=== PATIENT | male | born 1965 | race Caucasian/White ===

== ENCOUNTER 2017-09-01 13:15 | Emergency (ER) | payer BC ==
[2017-09-01 13:35] VITALS: BP 135/88; PULSE 72; TEMP 98.8; BMI 25.2
[2017-09-01] MEDS ORDERED: LIDOCAINE HCL 1%, 10 MG/ML (50 mL VIAL) SQ ONE (14:07)
[2017-09-01] MEDS ORDERED: DIPHTH,PERTUSS(ACELL),TET 0.5 ML DISP.SYRIN IM ONE (14:08)
[2017-09-01] MEDS ORDERED: LIDOCAINE HCL 1%, 10 MG/ML (20ML VIAL) ONE (14:14)
--- NOTE | 2017-09-01 14:25 | PDOC ---
History of Present Illness - General Chief Complaint: Laceration Stated Complaint: LEFT THUMB LACERATION Time Seen by Provider: 09/01/17 13:57 - History of Present Illness Initial Comments: 09/01/17 14:19 52-year-old male with no significant past medical history presents with a left thumb laceration. Patient reports 2 hours prior to arrival he was repairing plumbing in his home when he cut his finger on PVC piping. He reports the piping did not break, he just sliced his finger on it. He attempted to compress the lac on his own, however, when the bleeding did not stop, he presented to the emergency department. Does not remember his last tetanus shot. Has been in his usual state of good health, denies fevers, chills, chest pain, shortness of breath, abdominal pain, focal weakness or numbness. Past History - Past Medical History Allergies/Adverse Reactions: Allergies Allergy/AdvReac Type Severity Reaction Status Date / Time No Known Allergies Allergy Verified 09/01/17 13:16 Home Medications: Ambulatory Orders Acetaminophen [Tylenol] 650 mg PO PRN PRN 09/01/17 COPD: No Disorders: Yes (ACID REFLUX) - Immunization History Td Vaccination: No (UNKNOWN) - Suicide/Smoking/Psychosocial Hx Smoking Status: No Smoking History: Never smoked Have you smoked in the past 12 months: No Number of Cigarettes Smoked Daily: 0 Information on smoking cessation initiated: No Hx Alcohol Use: No Drug/Substance Use Hx: No Substance Use Type: None Review of Systems - Review of Systems Comments:: 09/01/17 14:21 GENERAL/CONSTITUTIONAL: No fever or chills. No weakness. HEAD, EYES, EARS, NOSE AND THROAT: No change in vision. No ear pain or discharge. No sore throat. GASTROINTESTINAL: No nausea, vomiting, diarrhea or constipation. GENITOURINARY: No dysuria, frequency, or change in urination. CARDIOVASCULAR: No chest pain or shortness of breath. RESPIRATORY: No cough, wheezing, or hemoptysis. MUSCULOSKELETAL: No joint or muscle swelling or pain. No neck or back pain. SKIN: No rash. +L thumb lac NEUROLOGIC: No headache, vertigo, loss of consciousness, or change in strength/ sensation. ENDOCRINE: No increased thirst. No abnormal weight change. HEMATOLOGIC/LYMPHATIC: No anemia, easy bleeding, or history of blood clots. ALLERGIC/IMMUNOLOGIC: No hives or skin allergy. *Physical Exam - Vital Signs Last Vital Signs Temp Pulse Resp BP Pulse Ox 98.8 F 72 18 135/88 99 09/01/17 13:16 09/01/17 13:16 09/01/17 13:16 09/01/17 13:16 09/01/17 13:16 - Physical Exam Comments: 09/01/17 14:21 GENERAL: Awake, alert, and fully oriented, in no acute distress HEAD: No signs of trauma EYES: PERRLA, EOMI, sclera anicteric, conjunctiva clear ENT: Auricles normal inspection, hearing grossly normal, nares patent, oropharynx clear without exudates. Moist mucosa NECK: Normal ROM, supple, no lymphadenopathy, JVD, or masses LUNGS: Breath sounds equal, clear to auscultation bilaterally. No wheezes, and no crackles HEART: Regular rate and rhythm, normal S1 and S2, no murmurs, rubs or gallops ABDOMEN: Soft, nontender, normoactive bowel sounds. No guarding, no rebound. No masses EXTREMITIES: Normal range of motion, no edema. No clubbing or cyanosis. No cords, erythema, or tenderness. 2+ peripheral pulses throughout. NEUROLOGICAL: Normal speech, cranial nerves intact, negative pronator drift, 5/ 5 strength in all 4 extremities, normal sensation to light touch in all 4 extremities, normal cerebellar exam, normal gait, normal reflexes and tone SKIN: L distal palmar thumb with 1.5cm clean linear lac, mildly oozing. Otherwise, Warm, Dry, normal turgor, no rashes or lesions noted. Procedures - Laceration/Wound Repair Left Distal Finger 5th digit Wound Length: to 2.5 cm Wound Explored: clean Wound's Depth, Shape: superficial Irrigated w/ Saline: Yes Anesthesia: 1% Lidocaine Amount of Anesthetic (ccs): 3 (L 5th digital nerve block) Wound Debrided: minimal Wound Repaired With: Sutures Suture Size/Type: 5:0, nylon Number of Sutures: 4 Layer Closure: No Sterile Dressing Applied: Yes ED Treatment Course - Medications Given in the ED: ED Medications Discontinued Medications Generic Name Dose Route Start Last Admin Trade Name Freq PRN Reason Stop Dose Admin Diphtheria/Tetanus/Acell Pertussis 0.5 ml 09/01/17 14:08 09/01/17 14:16 Boostrix - IM 09/01/17 14:09 0.5 ml .ONCE ONE Administration Lidocaine HCl 30 ml 09/01/17 14:07 09/01/17 14:16 Xylocaine 1% SQ 09/01/17 14:08 30 ml ONCE ONE Administration Medical Decision Making - Medical Decision Making 09/01/17 14:22 52-year-old male presents with a left fifth digit laceration after cutting it on PVC piping. Vitals within normal limits. We'll update tetanus shot, irrigate and repair his laceration. 09/01/17 15:07 Laceration repaired and dressed with bacitracin and gauze. Advised patient to keep the laceration dry for 24 hours and then changes dressing twice a day and apply bacitracin twice a day. Advised him to follow up here or at any urgent care center for suture removal in 10 days. Patient expresses understanding. I discussed the physical exam findings, ancillary test results and final diagnoses with the patient. I answered all of the patient's questions. The patient was satisfied with the care received and felt comfortable with the discharge plan and treatment plan. The patient will call their primary care physician within 24 hours to arrange follow-up and will return to the Emergency Department with any new, persistent or worsening symptoms. *DC/Admit/Observation/Transfer Diagnosis at time of Disposition: Laceration - Discharge Dispostion Disposition: HOME Condition at time of disposition: Stable Admit: No - Referrals - Patient Instructions Printed Discharge Instructions: DI for Laceration Repair, DI for Suture Removal Additional Instructions: Keep the incision clean and dry for 24 hours. After 24 hours, you may allow the soap and water to rinse off your incision. Avoid direct pressure of the water to the incision. Pat the incision dry with a clean cloth. Apply a small amount of bacitracin onto the incision twice a day. Cover the incision loosely with a bandaid. Take tylenol as needed for pain. Follow up with your physician in 48 hours for a wound check. Return to the ER if you notice red streaks, discharge, increase redness/swelling /severe pain to the incision. Print Language: ESTONIAN - Post Discharge Activity - Attestations Physician Attestion: 09/01/17 15:07 I, Dr. Rahel Acosta MD, attest that this document has been prepared under my direction and personally reviewed by me in its entirety. I further attest, that it accurately reflects all work, treatment, procedures and medical decision -making performed by me.
== END 2017-09-01 15:14 | disposition home or self-care (01) ==
LOC: FER 13:15
PROC: 0HQGXZZ Repair Left Hand Skin, External Approach (ICD-10-PCS; principal; 2017-09-01)
DX: S61.012A Laceration without foreign body of left thumb without damage to nail, initial encounter (principal); W45.8XXA Other foreign body or object entering through skin, initial encounter; Y93.89 Activity, other specified; Y92.009 Unspecified place in unspecified non-institutional (private) residence as the place of occurrence of the external cause
CPT/HCPCS: 90715; 99282-25

== ENCOUNTER 2017-09-11 17:54 | Emergency (ER) | payer BC ==
[2017-09-11 17:59] VITALS: BP 129/88; PULSE 85; TEMP 98.1; BMI 24.5
--- NOTE | 2017-09-11 19:08 | PDOC ---
Suture Removal/Wound Check HPI - History of Present Illness Chief Complaint: Suture/Staple Removal(Here) Stated Complaint: SUTURE REMOVAL LEFT THUMB Time Seen by Provider: 09/11/17 17:56 Past History - Past Medical History Allergies/Adverse Reactions: Allergies Allergy/AdvReac Type Severity Reaction Status Date / Time No Known Allergies Allergy Verified 09/11/17 17:55 Home Medications: Ambulatory Orders Acetaminophen [Tylenol] 650 mg PO PRN PRN 09/01/17 COPD: No Disorders: Yes (ACID REFLUX) - Immunization History Td Vaccination: Yes - Suicide/Smoking/Psychosocial Hx Smoking Status: No Smoking History: Never smoked Have you smoked in the past 12 months: No Number of Cigarettes Smoked Daily: 0 Information on smoking cessation initiated: No Hx Alcohol Use: No Drug/Substance Use Hx: No Substance Use Type: None *DC/Admit/Observation/Transfer Diagnosis at time of Disposition: Visit for suture removal - Discharge Dispostion Disposition: HOME Condition at time of disposition: Stable Admit: No - Referrals Referrals: Martín Kellogg MD [Primary Care Provider] - - Patient Instructions Printed Discharge Instructions: DI for Suture Removal - Post Discharge Activity
== END 2017-09-11 19:15 | disposition home or self-care (01) ==
LOC: FER 17:54
DX: Z48.02 Encounter for removal of sutures (principal)
CPT/HCPCS: 99282-25

== ENCOUNTER 2023-03-04 13:18 | Emergency (ER) | payer BC ==
[2023-03-04 13:24] VITALS: BP 136/88; PULSE 76; RESP 18; TEMP 98.5; BMI 25.2
[2023-03-04] MEDS ORDERED: KETOROLAC TROMETHAMINE 30 MG/1 ML VIAL IM ONE (13:34)
[2023-03-04] MEDS ORDERED: METHOCARBAMOL 500 MG TABLET PO ONE (13:34)
[2023-03-04] MEDS ORDERED: LIDOCAINE 5% TOPICAL PATCH TP ONE (13:34)
[2023-03-04] MEDS ORDERED: METHOCARBAMOL 500 MG TABLET ONE (13:36)
[2023-03-04] MEDS ORDERED: LIDOCAINE 5% TOPICAL PATCH ONE (13:36)
[2023-03-04] MEDS ORDERED: KETOROLAC TROMETHAMINE 30 MG/1 ML VIAL ONE (13:36)
[2023-03-04] MEDS ORDERED: LIDOCAINE PATCH REMOVAL MC SCH (22:00)
== END 2023-03-04 14:40 | disposition home or self-care (01) ==
LOC: FER 13:18
PROC: 3E0233Z Introduction of Anti-inflammatory into Muscle, Percutaneous Approach (ICD-10-PCS; principal; 2023-03-04)
DX: M54.50 Low back pain, unspecified (principal)
CPT/HCPCS: 99284-25

== ENCOUNTER 2024-04-04 04:14 | Day surgery (SDC) | payer BC ==
[2024-03-25 14:46] VITALS: BMI 27.1
[2024-04-04 12:29] VITALS: TEMP 97.9
[2024-04-04 12:58] VITALS: RESP 16
[2024-04-04 13:00] VITALS: BP 107/73; PULSE 76
== END 2024-04-04 13:04 | disposition home or self-care (01) ==
LOC: JASU-ENDO 04:14
PROVIDERS: ATTEND Internal Medicine Gastroenterology
PROC: 0DB98ZX Excision of Duodenum, Via Natural or Artificial Opening Endoscopic, Diagnostic (ICD-10-PCS; 2024-04-04)
PROC: 0DB68ZX Excision of Stomach, Via Natural or Artificial Opening Endoscopic, Diagnostic (ICD-10-PCS; 2024-04-04)
PROC: 0DJD8ZZ Inspection of Lower Intestinal Tract, Via Natural or Artificial Opening Endoscopic (ICD-10-PCS; principal; 2024-04-04 12:00)
DX: Z12.11 Encounter for screening for malignant neoplasm of colon (principal); K57.30 Diverticulosis of large intestine without perforation or abscess without bleeding; K64.8 Other hemorrhoids; K21.00 Gastro-esophageal reflux disease with esophagitis, without bleeding; Z86.0100 Personal history of colon polyps, unspecified; K29.50 Unspecified chronic gastritis without bleeding
CPT/HCPCS: 88305-TC; 88342-TC